=== PATIENT | male | born 2005 | race Caucasian/White ===

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

== ENCOUNTER 2024-02-21 12:27 | Inpatient (IN) | payer OTHER ==
[2024-02-21 13:10] VITALS: BMI 24.3
[2024-02-21] MEDS ORDERED: DICYCLOMINE HCL 10 MG CAPSULE PO PRN (14:38)
[2024-02-21] MEDS ORDERED: IBUPROFEN 400 MG TABLET (FP) PO PRN (14:38)
[2024-02-21] MEDS ORDERED: BISMUTH SUBSALICYLATE 262 MG/15 ML BTL PO PRN (14:38)
[2024-02-21] MEDS ORDERED: BENZOCAINE/MENTHOL (CHLORASEPTIC ) LOZENGE MM PRN (14:38)
[2024-02-21] MEDS ORDERED: MAGNESIUM HYDROX 2400MG/30ML ORAL SUSPENSION 30 ML CUP PO PRN (14:38)
[2024-02-21] MEDS ORDERED: MAG HYDROX/AL HYDROX/SIMETH 30 ML UNIT-DOSE CUP PO PRN (14:38)
[2024-02-21] MEDS ORDERED: NALOXONE HCL (KLOXXADO) 8 MG SPRAY NS PRN (14:38)
[2024-02-21] MEDS ORDERED: ACETAMINOPHEN 325 MG TABLET (FP) PO PRN (14:38)
[2024-02-21] MEDS ORDERED: BENZONATATE 200 MG CAPSULE PO PRN (14:38)
[2024-02-21] MEDS ORDERED: guaiFENesin 600 MG TABLET.ER (FP) PO PRN (14:38)
[2024-02-21] MEDS ORDERED: NALOXONE HCL 0.4 MG/ML VIAL IM PRN (14:38)
[2024-02-21] MEDS ORDERED: IBUPROFEN 600 MG TABLET (FP) PO PRN (14:38)
[2024-02-21] MEDS ORDERED: POLYETHYLENE GLYCOL (HEALTHYLAX) 3350 17 GM PACKET PO PRN (14:38)
[2024-02-21] MEDS ORDERED: LOPERAMIDE HCL 2 MG CAPSULE PO PRN (14:38)
[2024-02-21] MEDS: ONDANSETRON *ODT* 4 MG TABLET SL PRN (14:53)
[2024-02-21] MEDS ORDERED: methaDONE HCL 10 MG TABLET (FOR DETOX USE ONLY) ONE (15:11)
[2024-02-21] MEDS: methaDONE HCL 10 MG TABLET (FOR DETOX USE ONLY) PO ONE (15:17)
[2024-02-21] MEDS: BUPRENORPHINE/NALOXONE 0.5 MG/0.125 MG FILM SL ONE ×2 (15:21→22:26)
[2024-02-21] MEDS ORDERED: BUPRENORPHINE/NALOXONE 0.5 MG/0.125 MG FILM ONE (15:28)
[2024-02-21] MEDS: PRENATAL VITAMINS W/ FOLIC ACID TABLET (FP) PO SCH (15:42)
[2024-02-21] MEDS: NICOTINE 7 MG/24 HOURS TOPICAL PATCH TD SCH (15:42)
[2024-02-21] MEDS: cloNIDine HCL 0.1 MG TABLET PO SCH (17:29)
[2024-02-21] MEDS: MELATONIN 5 MG TABLETS PO SCH (22:25)
[2024-02-21] MEDS: METHOCARBAMOL 500 MG TABLET PO PRN (22:25)
[2024-02-21] MEDS: THIAMINE 100 MG TABLET PO SCH (22:25)
[2024-02-22] MEDS: BUPRENORPHINE/NALOXONE 0.5 MG/0.125 MG FILM SL SCH (09:22)
[2024-02-22 11:46] LABS: HEMATOCRIT 41.7 % (35.4-49); HEMOGLOBIN 14.3 GM/dL (11.7-16.9); MCH 30.3 pg (25.7-33.7); MCHC 34.4 g/dl (32.0-35.9); MEAN CELL VOLUME 88.1 fl (80-96); MEAN PLT VOLUME 7.9 fl (7.5-11.1); PLATELET COUNT 375 10^3/uL (134-434); RBC 4.73 M/mm3 (4.00-5.60); RDW 13.1 % (11.9-15.9); WHITE BLOOD COUNT 8.5 K/mm3 (4.0-10.0)
[2024-02-22 11:51] LABS: CHLORIDE 106 mmol/L (98-107); POTASSIUM 4.7 mmol/L (3.5-5.1); SODIUM 135 mmol/L (136-145)
[2024-02-22 12:09] LABS: ALBUMIN 3.3 g/dl (3.4-5.0); ANION GAP 2 mmol/L (4-13); BLOOD UREA NITROGEN 11.8 mg/dL (7-18); CALCIUM 8.9 mg/dL (8.5-10.1); CO2 27 mmol/L (21-32); GLUCOSE,RANDOM 104 mg/dL (74-106)
[2024-02-22 12:12] LABS: CREATININE 0.9 mg/dL (0.55-1.3); SGOT/AST 7 U/L (15-37); SGPT/ALT 21 U/L (13-61)
[2024-02-22 12:13] LABS: TOT PROT 6.1 g/dl (6.4-8.2)
[2024-02-22 12:14] LABS: ALK PHOS 104 U/L (45-117); BILIRUBIN,TOTAL 0.3 mg/dL (0.2-1)
[2024-02-22] MEDS: hydrOXYzine PAMOATE 25 MG CAPSULE (FP) PO PRN (17:37)
[2024-02-23] MEDS: methaDONE HCL 10 MG TABLET (FOR DETOX USE ONLY) PO ONE (10:08)
[2024-02-23] MEDS: BUPRENORPHINE/NALOXONE 2 MG/0.5 MG FILM PACKET SL SCH (10:09)
[2024-02-24] MEDS: BUPRENORPHINE/NALOXONE 4 MG/1 MG FILM PACKET SL SCH (09:56)
[2024-02-24] MEDS: NICOTINE 14 MG/24 HOURS TOPICAL PATCH TD ONE (16:09)
[2024-02-25 09:16] VITALS: RESP 16
[2024-02-25] MEDS: NICOTINE 7 MG/24 HOURS TOPICAL PATCH TD SCH (09:59)
[2024-02-25] MEDS: methaDONE HCL 10 MG TABLET (FOR DETOX USE ONLY) PO ONE (10:00)
[2024-02-25] MEDS: BUPRENORPHINE/NALOXONE 8 MG/2 MG FILM PACKET SL SCH (10:02)
[2024-02-26 09:11] VITALS: BP 110/62; PULSE 73; TEMP 98
[2024-02-26] MEDS: BUPRENORPHINE/NALOXONE 8 MG/2 MG FILM PACKET SL SCH (09:15)
== END 2024-02-26 09:16 | disposition home or self-care (01) | DRG 773 ==
LOC: YASAS 12:27 → Y6N 15:02
PROVIDERS: ADMIT Allergy & Immunology; ATTEND Surgery
PROC: HZ2ZZZZ Detoxification Services for Substance Abuse Treatment (ICD-10-PCS; principal; 2024-02-21)
DX: F11.23 Opioid dependence with withdrawal (principal); F12.20 Cannabis dependence, uncomplicated; F17.210 Nicotine dependence, cigarettes, uncomplicated
CPT/HCPCS: 36415; 80053; 80307; 85027; 86780; 93005; 93010; Q0162